=== PATIENT | male | born 1960 | race Caucasian/White ===

== ENCOUNTER 2018-09-22 09:10 | Emergency (ER) | payer MEDICAID ==
[~2018-09-22] VITALS: Ht 172.7 cm; Wt 81.6 kg
[~2018-09-22 09:10] MED LIST: AMIT25TA9; AMLO5TAB4 PO; CYCL-10 PO; ESCI10TA PO; HYDR-4274 PO; INSU300I SQ; OMEP20CA10 PO
[2018-09-22 09:20] VITALS: BP_SYST 159
[2018-09-22] MEDS ORDERED: LACTULOSE 20 GM/30 ML UDC PO ONE (10:00)
[2018-09-22 10:17] LABS: CALCIUM 8.1 mg/dL (8.4-11.0); CREATININE 0.77 mg/dL (0.55-1.30); POTASSIUM 4.6 mmol/L (3.5-5.1)
[2018-09-22 10:22] LABS: ALBUMIN 1.7 g/dL (3.4-4.8); TOTAL BILIRUBIN 0.6 mg/dL (0.0-1.0)
[2018-09-22 10:27] LABS: HEMOGLOBIN 11.9 g/dL (14.0-18.0)
[2018-09-22 10:35] LABS: BASOPHILS # (AUTO) 0.1 K/uL (0.0-0.2); BASOPHILS % (AUTO) 0.9 % (0.0-2.0); EOSINOPHILS # (AUTO) 0.1 K/uL (0.0-0.4); EOSINOPHILS % (AUTO) 2.1 % (0.0-4.0); HEMATOCRIT 35.3 % (36-54); LYMPHOCYTES # (AUTO) 0.8 K/uL (1.0-5.5); LYMPHOCYTES % (AUTO) 14.3 % (20.5-51.5); MEAN CORPUSCULAR HEMOGLOBIN 31 pg (27-31); MEAN CORPUSCULAR HGB CONC 34 % (32-36); MEAN CORPUSCULAR VOLUME 91 fL (79.0-98.0); MONOCYTES # (AUTO) 0.5 K/uL (0.0-1.0); MONOCYTES % (AUTO) 8.5 % (1.7-9.3); NEUTROPHILS # (AUTO) 4.4 K/uL (1.8-7.7); NEUTROPHILS % (AUTO) 74.2 % (40.0-70.0); PLATELET COUNT (AUTO) 192 K/uL (130-430); RED BLOOD CELL COUNT(AUTO) 3.88 MIL/uL (4.2-6.2); RED CELL DISTRIBUTION WIDTH 14.8 % (9.0-15.0); WHITE BLOOD COUNT (AUTO) 5.9 K/uL (4.8-10.8)
[2018-09-22] MEDS ORDERED: MORPHINE 4 MG/ML INJ. SYRINGE IM ONE (11:00)
[2018-09-22 11:09] VITALS: BP_SYST 144
== END 2018-09-22 10:15 | disposition home or self-care (01) ==
LOC: SED 09:10
DX: K59.00 Constipation, unspecified (principal); K43.9 Ventral hernia without obstruction or gangrene; E11.9 Type 2 diabetes mellitus without complications; I10 Essential (primary) hypertension; Z79.899 Other long term (current) drug therapy
CPT/HCPCS: 36415; 80053; 82140; 83690; 85025; 96372; 99283; J2270

== ENCOUNTER 2018-10-06 10:11 | Emergency (ER) | payer MEDICAID ==
[~2018-10-06] VITALS: Ht 172.7 cm; Wt 68.0 kg
[2018-10-06 10:16] VITALS: BP_SYST 145
--- NOTE | 2018-10-06 10:23 | NUR ---
Patient to ER bed 5 to gown for evaluation. Side rails up. Report given to Gayla LUNA.
--- NOTE | 2018-10-06 10:24 | NUR ---
ER Dr. WHITMORE at bedside examining patient.
--- NOTE | 2018-10-06 10:25 | NUR ---
PATIENT CAME IN COMPLAINING OF PAIN 8/10 TO RIGHT SIDE OF ABD RADIATING TO GROIN. PATIENT HAS HISTORY OF COLON CANCER THAT METASTISIZED TO LIVER. PATIENT TAKING NORCO FOR PAIN BUT IS NOT WORKING. PATIENT NOT ON CHEMO OR RADIATION AT THE MOMENT. PATIENT SUPPOSE TO HAVE SURGERY BUT WAITING FOR INSURANCE AND SURGONS APPROVAL. PATIENT DENIES SOB, NAUSEA, AND VOMITING. PATIENT IS ALERT AND ORIENTED X4. AT BEDSIDE.
[2018-10-06] MEDS ORDERED: NACL 0.9% 1,000 ML IV ONE (10:34)
[2018-10-06] MEDS ORDERED: MORPHINE SULFATE 10 MG/ML VIAL IVP ONE (10:45)
[2018-10-06] MEDS ORDERED: ONDANSETRON HCL 4 MG/2 ML VIAL IVP ONE (10:45)
[2018-10-06 10:57] LABS: BASOPHILS # (AUTO) 0.1 K/uL (0.0-0.2); BASOPHILS % (AUTO) 0.9 % (0.0-2.0); EOSINOPHILS # (AUTO) 0.1 K/uL (0.0-0.4); EOSINOPHILS % (AUTO) 1.4 % (0.0-4.0); HEMATOCRIT 34.7 % (36-54); HEMOGLOBIN 11.7 g/dL (14.0-18.0); LYMPHOCYTES # (AUTO) 1.1 K/uL (1.0-5.5); LYMPHOCYTES % (AUTO) 17.8 % (20.5-51.5); MEAN CORPUSCULAR HEMOGLOBIN 31 pg (27-31); MEAN CORPUSCULAR HGB CONC 34 % (32-36); MEAN CORPUSCULAR VOLUME 91 fL (79.0-98.0); MONOCYTES # (AUTO) 0.7 K/uL (0.0-1.0); MONOCYTES % (AUTO) 10.4 % (1.7-9.3); NEUTROPHILS # (AUTO) 4.4 K/uL (1.8-7.7); NEUTROPHILS % (AUTO) 69.5 % (40.0-70.0); PLATELET COUNT (AUTO) 246 K/uL (130-430); RED BLOOD CELL COUNT(AUTO) 3.81 MIL/uL (4.2-6.2); RED CELL DISTRIBUTION WIDTH 14.6 % (9.0-15.0); WHITE BLOOD COUNT (AUTO) 6.3 K/uL (4.8-10.8)
[2018-10-06 10:57] LABS: BILIRUBIN,URINE 1+ (NEGATIVE); BLOOD, URINE 2+ (NEGATIVE); CLARITY/URINE HAZY (CLEAR); COLOR,URINE AMBER (YELLOW); GLUCOSE,URINE TRACE (NEGATIVE); KETONES,URINE NEGATIVE (NEGATIVE); LEUKOCYTE ESTERASE ,URINE NEGATIVE (NEGATIVE); NITRITE, URINE NEGATIVE (NEGATIVE); PH,URINE 6.5 (5.0-8.0); PROTEIN URINE 3+ (NEGATIVE)
[2018-10-06 11:05] LABS: BACTERIA,URINE FEW /HPF (None Seen); MUCUS,URINE 1+ /LPF (None Seen); RBC,URINE 0-3 /HPF (0-3); WBC,URINE 0-3 /HPF (0-3)
--- NOTE | 2018-10-06 11:05 | NUR ---
GAVE PATIENT PAIN MEDICATION. PATIENT TOLERATED WELL. PATIENT STATED SOME RELIEF.
--- NOTE | 2018-10-06 11:07 | NUR ---
PATIENT LEFT TO CT VIA GURNEY IN STABLE CONDITION.
[2018-10-06 11:10] LABS: ALBUMIN 1.7 g/dL (3.4-4.8); CALCIUM 7.8 mg/dL (8.4-11.0); CREATININE 0.75 mg/dL (0.55-1.30); TOTAL BILIRUBIN 0.5 mg/dL (0.0-1.0)
--- NOTE | 2018-10-06 11:19 | NUR ---
PATIENT BACK FROM CT IN STABLE CONDITION.
--- NOTE | 2018-10-06 12:52 | NUR ---
Patient given written and verbal discharge instructions and verbalizes understanding. ER MD discussed with patient the results and treatment provided. Patient in stable condition. ID arm band removed. IV catheter removed intact and dressing applied, no active bleeding. NO Rx given. Patient educated on pain management and to follow up with PMD. Pain Scale 2/10 TOLERABLE. Opportunity for questions provided and answered. Medication side effect fact sheet provided.
[2018-10-06 12:54] VITALS: BP_SYST 130
== END 2018-10-06 12:54 | disposition home or self-care (01) ==
LOC: SED 10:11
DX: R10.11 Right upper quadrant pain (principal); K46.9 Unspecified abdominal hernia without obstruction or gangrene; C18.9 Malignant neoplasm of colon, unspecified; I10 Essential (primary) hypertension; E11.9 Type 2 diabetes mellitus without complications; Z79.899 Other long term (current) drug therapy
CPT/HCPCS: 36415; 74176; 80053; 81000; 83690; 85025; 96374; 96375; 99284; J2270; J2405; J7030

== ENCOUNTER 2018-10-28 03:52 | Inpatient (IN) | payer MEDICAID ==
[~2018-10-28] VITALS: Ht 172.7 cm; Wt 83.1 kg
[2018-10-28 03:55] VITALS: BP_SYST 133
--- NOTE | 2018-10-28 03:58 | NUR ---
Patient to ER bed 8 to gown for evaluation. Side rails up. Report given to Vanita LUNA.
--- NOTE | 2018-10-28 04:15 | NUR ---
Pt came to the ED for ABD pain radiating to back and groin. Pain is 10/10. Denies SOB and chest pain. Denies n/v/d or fever. No other complaints/injuries noted. Will cont. to monitor.
[2018-10-28] MEDS ORDERED: NACL 0.9% 1,000 ML IV ONE (04:29)
[2018-10-28] MEDS ORDERED: DIPHENHYDRAMINE INJ 50 MG/ML VIAL IVP ONE (04:30)
[2018-10-28] MEDS ORDERED: MORPHINE 4 MG/ML INJ. SYRINGE IVP ONE (04:30)
--- NOTE | 2018-10-28 04:32 | NUR ---
ER at bedside examining patient.
--- NOTE | 2018-10-28 04:35 | NUR ---
Marixa gould in ED - 10/28/18 at 0525 by [email or web address] GILBERTO Perez at bedside examining patient.
--- NOTE | 2018-10-28 05:08 | NUR ---
Pt appears to be sleeping prior to administration of medication. Pt woke up and states, "I am in so much pain."
[2018-10-28] MEDS ORDERED: IOHEXOL 100 ML IV ONE (05:09)
--- NOTE | 2018-10-28 05:24 | NUR ---
Pt went to CT SCAN via [employer]. Tolerated well. Will cont. to monitor
[2018-10-28 05:36] LABS: BASOPHILS % (AUTO) 0.6 % (0.0-2.0); EOSINOPHILS % (AUTO) 0.3 % (0.0-4.0); HEMATOCRIT 32.7 % (36-54); LYMPHOCYTES # (AUTO) 1.1 K/uL (1.0-5.5); LYMPHOCYTES % (AUTO) 13.8 % (20.5-51.5); MEAN CORPUSCULAR HEMOGLOBIN 31 pg (27-31); MEAN CORPUSCULAR HGB CONC 34 % (32-36); MEAN CORPUSCULAR VOLUME 91 fL (79.0-98.0); MONOCYTES # (AUTO) 0.9 K/uL (0.0-1.0); MONOCYTES % (AUTO) 10.8 % (1.7-9.3); NEUTROPHILS % (AUTO) 74.5 % (40.0-70.0); PLATELET COUNT (AUTO) 280 K/uL (130-430); RED BLOOD CELL COUNT(AUTO) 3.58 MIL/uL (4.2-6.2); RED CELL DISTRIBUTION WIDTH 14.8 % (9.0-15.0)
[2018-10-28 05:42] LABS: CALCIUM 7.6 mg/dL (8.4-11.0); CREATININE 1.07 mg/dL (0.55-1.30); POTASSIUM 4.1 mmol/L (3.5-5.1)
--- NOTE | 2018-10-28 05:46 | NUR ---
Pt returned from CT scan via [employer]. Tolerated well. Will cont. to monitor.
[2018-10-28 05:48] LABS: ALBUMIN 1.7 g/dL (3.4-4.8); TOTAL BILIRUBIN 0.5 mg/dL (0.0-1.0)
--- NOTE | 2018-10-28 07:05 | NUR ---
Medication reconciliation completed with information provided by patient. Any prior medication reconciliation on file was reviewed and corrected.
--- NOTE | 2018-10-28 07:35 | NUR ---
Patient will be admitted to care of Dr. Carlos. Admitted to medsurg unit. Will go to room 116B. Belongings list completed. Summary report printed. Report will be given at bedside.
--- NOTE | 2018-10-28 07:45 | NUR ---
Patient transferred via joaquin and RN with patent and intact IV to right AC. Bedside report given to JEREMY Delacruz for continuation of care.
--- NOTE | 2018-10-28 07:45 | NUR ---
Admission: Received from ER on a gurney with the diagnosis of Colon Cancer, Ascitis. Oriented x4, ambulatory, uses cane. Oriented to room, call light within reach.
--- NOTE | 2018-10-28 08:14 | NUR ---
GI consult called: for Dr. Rose, regarding ascites/colon cancer, ordered by Dr. Carlos, spoke with Amy.
[2018-10-28 08:25] VITALS: BP_SYST 154
[2018-10-28 08:43] LABS: BILIRUBIN,URINE 1+ (NEGATIVE); CLARITY/URINE CLEAR (CLEAR); COLOR,URINE YELLOW (YELLOW); GLUCOSE,URINE TRACE (NEGATIVE); KETONES,URINE NEGATIVE (NEGATIVE); LEUKOCYTE ESTERASE ,URINE NEGATIVE (NEGATIVE); NITRITE, URINE NEGATIVE (NEGATIVE); PH,URINE 6.5 (5.0-8.0); PROTEIN URINE 3+ (NEGATIVE)
[2018-10-28 08:46] LABS: BLOOD, URINE TRACE (NEGATIVE); UROBILINOGEN,URINE >=8 (0.2-1.0)
[2018-10-28 08:53] LABS: BACTERIA,URINE FEW /HPF (None Seen); FINE GRANULAR CASTS,URINE 0-10 /LPF (None Seen); HYALINE CASTS, URINE 0-10 /LPF (None Seen); RBC,URINE 0-3 /HPF (0-3); WBC,URINE 0-3 /HPF (0-3)
--- NOTE | 2018-10-28 09:00 | NUR ---
ASSUMPTION OF CARE: RECEIVED PT FROM ER VIA Justyna LEI/MYLES, DX: RISK FOR FLUID EXCESS, R/T ASCITES, COLON CA, BREATH SOUNDS ARE CLEAR, BREATHING LABORED ON EXERTION, SATURATING 97% ORA, VSS, C/O MODERATE PAIN TO ABD 6/10 VIA NUMERIC SCALE, M.D. CALLED, MESSAGE LEFT, IV SITE INTACT, PATENT, NO REDNESS OR SWELLING, NO OPEN WOUNDS NOTED, ABDOMEN DISTENDED AND FIRM, ORIENTED TO UNIT, CALL LIGHT PLACED WITHIN REACH, WILL CON'T TO MONITOR AND ASSESS.
--- NOTE | 2018-10-28 09:45 | NUR ---
VISIT: AT BEDSIDE FOR ASSESSMENT OF PT, DISCUSSED POC, PT VERBALIZES UNDERSTANDING, NO NEW ORDERS GIVEN AT THIS TIME, WILL CON'T TO MONITOR AND ASSESS.
[2018-10-28] MEDS ORDERED: ONDANSETRON HCL 4 MG/2 ML VIAL IVP PRN (10:30)
[2018-10-28] MEDS ORDERED: ACETAMINOPHEN 325 MG TABLET PO PRN (10:30)
[2018-10-28] MEDS ORDERED: DEXTROSE 50% JECT 50 ML DISP.SYRIN IVP PRN (10:30)
[2018-10-28] MEDS ORDERED: METOCLOPRAMIDE HCL 10 MG/2 ML VIAL IVP PRN (10:30)
[2018-10-28] MEDS ORDERED: MORPHINE 2 MG/ML INJ. SYRINGE IVP PRN (10:30)
--- NOTE | 2018-10-28 10:30 | NUR ---
VISIT: AT BEDSIDE FOR ASSESSMENT OF PT, DISCUSSED POC, PT VERBALIZES UNDERSTANDING, NEW ORDERS GIVEN, WILL CON'T WITH PLAN OF CARE.
[2018-10-28] MEDS ORDERED: CITALOPRAM HYDROBROMIDE 20 MG TABLET PO ONE (10:45)
[2018-10-28] MEDS ORDERED: PANTOPRAZOLE SODIUM 40 MG TAB PO ONE (10:45)
--- NOTE | 2018-10-28 10:55 | NUR ---
PAIN: PT C/O PAIN TO ABD 9/10 VIA NUMERIC SCALE, MED GIVEN MORPHINE 4MG IVP WITH 4MG ZOFRAN FOR NAUSEA, TOLERATED WELL, CALL LIGHT PLACED WITHIN REACH, WILL CON'T TO MONITOR AND ASSESS.
[2018-10-28] MEDS: MORPHINE 4 MG/ML INJ. SYRINGE IVP PRN ×3 (10:56→21:03)
--- NOTE | 2018-10-28 11:15 | NUR ---
GLUCOSE MONITORING: BLOOD SUGAR AGOIL=077, NO COVERAGE REQUIRED, TOLERATED WELL, WILL CON'T WITH POC.
[2018-10-28 11:36] VITALS: BP_SYST 119
[2018-10-28 15:25] VITALS: BP_SYST 134
--- NOTE | 2018-10-28 15:30 | NUR ---
NURSES NOTES: PT ASLEEP WHILE IN POSITION OF COMFORT, NO INDICATION OF PAIN OR DISCOMFORT, NO S/S OF DISTRESS, BREATHING EASY, CALL LIGHT PLACED WITHIN REACH, WILL CON'T TO MONITOR AND ASSESS.
--- NOTE | 2018-10-28 17:15 | NUR ---
PAIN: PT C/O PAIN TO ABD 9/10 VIA NUMERIC SCALE, MED GIVEN MORPHINE 4MG IVP, TOLERATED WELL, CALL LIGHT PLACED WITHIN REACH, WILL CON'T TO MONITOR AND ASSESS.
--- NOTE | 2018-10-28 18:00 | NUR ---
END OF SHIFT: PT REMAINS STABLE, NO C/O PAIN, NO SIGNIFICANT CHANGES NOTED AT THIS TIME, NEEDS MET, CALL LIGHT WITH REACH, WILL ENDORSE TO RETAIL ACCOUNT MANAGER NURSE.
--- NOTE | 2018-10-28 19:35 | NUR ---
INITIAL NOTE RECEIVED PATIENT ASLEEP BUT EASILY AROUSABLE. AWAKE, ALERT AND ORIENTED. NO SOB NOTED. DENIES ANY N/V OR SOB AT THIS TIME. COMPLAIN OF MILD ABDOMINAL PAIN. SALINE LOCK FLUSHED. SKIN INTACT AND NO PERIPHERAL EDEMA. AMBULATES WITH STEADY GAIT. DRY BLISTER NOTED ON RIGHT DISTAL FOOT. WILL COVER WITH FOAM DRESSING. ABDOMEN DISTENDED AND HERNIA NOTED ON RUQ. CARE AND MONITORING WILL BE PROVIDED PER PROTOCOL. CALL LIGHT WITHIN REACH. BED ALARM OFF PER PATIENT'S REQUEST. BED AT LOWEST POSITION AT ALL TIMES. NEEDS ATTENDED. KEPT WARM AND COMFORTABLE.
[2018-10-28 20:00] VITALS: BP_SYST 138
--- NOTE | 2018-10-28 21:00 | NUR ---
PAIN MED COMPLAIN OF SEVERE ABDOMINAL PAIN, MEDICATED FOR PAIN. COMFORT MEASURES PROVIDED. LATEST BLOOD SUGAR WAS 99, NO COVERAGE GIVEN. TOOK PHOTO OF THE DRY BLISTER AND COVERED WITH FOAM DRESSING. ADVISED TO CALL IF HE FEELS WEAK OR DIZZY. NEEDS ATTENDED.
--- NOTE | 2018-10-28 23:00 | NUR ---
RN NOTE PATIENT SLEEPING AT THIS TIME. NO SOB OR GRIMACING NOTED.
[2018-10-29 00:10] VITALS: BP_SYST 134
--- NOTE | 2018-10-29 01:00 | NUR ---
RN NOTE ASLEEP, MOVES OCCASIONALLY. NO DISTRESS NOTED.
[2018-10-29] MEDS: MORPHINE 4 MG/ML INJ. SYRINGE IVP PRN ×5 (02:57→23:42)
--- NOTE | 2018-10-29 03:00 | NUR ---
PAIN MED PATIENT AWAKE WITH FAMILY AT THE BEDSIDE. COMPLAIN OF ABDOMINAL PAIN. MEDICATED FOR PAIN REQUESTED. COMFORT MEASURES PROVIDED. KEPT WARM AND COMFORTABLE.
--- NOTE | 2018-10-29 03:00 | NUR ---
PAIN MED PATIENT AWAKE. COMPLAIN OF ABDOMINAL PAIN AND MILD NAUSEA. NO VOMITING. MEDICATED FOR PAIN REQUESTED. PAGED DR. LIU 4X BUT NO CALL BACK. PATIENT AWARE. COMFORT MEASURES PROVIDED. KEPT WARM AND COMFORTABLE. Addendum: 10/29/18 at 0302 by Marito De La Cruz RN WRONG PATIENT
--- NOTE | 2018-10-29 05:38 | NUR ---
ACCU CHECK TO AC/HS DR. LIU CALLED BACK AND REQUESTED TO HAVE PATIENT'S ACCU CHECK SCHEDULE CHANGE TO AC/HS. ORDER WAS MADE AND CARRIED OUT.
--- NOTE | 2018-10-29 06:26 | NUR ---
END NOTE AFEBRILE. VS STABLE. NO COMPLAIN OF SOB OR N/V THROUGHOUT THE NIGHT. MEDICATED FOR ABDOMINAL PAIN TWICE ALL NIGHT. ABLE TO SLEEP FOR HOURS. SALINE LOCK. NO LABS TODAY. LATEST BLOOD SUGAR WAS 107, NO COVERAGE GIVEN. DRESSING ON RIGHT DISTAL FOOT CDI. CARE AND MONITORING PROVIDED PER PROTOCOL. CALL LIGHT WITHIN REACH. BED ALARM OFF PER PATIENT'S REQUEST. BED AT LOWEST POSITION AT ALL TIMES. NEEDS ATTENDED. KEPT WARM AND COMFORTABLE.
[2018-10-29 08:00] VITALS: BP_SYST 126; BP_SYST 156
[2018-10-29] MEDS: CITALOPRAM HYDROBROMIDE 20 MG TABLET PO SCH (08:28)
[2018-10-29] MEDS: PANTOPRAZOLE SODIUM 40 MG TAB PO SCH (08:28)
--- NOTE | 2018-10-29 09:00 | NUR ---
JIG MILL OPERATOR: MORNING MEDS GIVEN, PER ORDERED BY Rita, TOLERATED WELL, WILL CON'T WITH POC.
--- NOTE | 2018-10-29 09:00 | NUR ---
GLUCOSE MONITORING: BLOOD SUGAR LEVEL=97, NO COVERAGE REQUIRED, TOLERATED WELL, WILL CON'T WITH POC.
--- NOTE | 2018-10-29 09:38 | NUR ---
Nutrition Update Nick Scale 18 noted. Pt admitted for colon CA, ascites. Diet: clear liquid BMI: 27.9 kg/m2 RD to follow per nutrition care standards.
[2018-10-29 11:29] VITALS: BP_SYST 128
--- NOTE | 2018-10-29 11:30 | NUR ---
GLUCOSE MONITORING: BLOOD SUGAR LEVEL=98, NO COVERAGE REQUIRED, TOLERATED WELL, WILL CON'T WITH POC.
--- NOTE | 2018-10-29 13:00 | NUR ---
US PARACENTESIS: PT UNDERGOING PROCEDURE AT BEDSIDE, US GUIDED PARACENTESIS BY , 5L REMOVED FROM RIGHT SIDE ABDOMEN, TOLERATED WELL, FLUID IS LABELLED AND SENT TO LAB FOR PATHOLOGY, WILL CON'T WITH POC.
[2018-10-29 16:07] VITALS: BP_SYST 136
--- NOTE | 2018-10-29 17:00 | NUR ---
GLUCOSE MONITORING: BLOOD SUGAR LEVEL=97, NO COVERAGE REQUIRED, TOLERATED WELL, WILL CON'T WITH POC.
--- NOTE | 2018-10-29 18:00 | NUR ---
END OF SHIFT: PT RESTING IN POSITION OF COMFORT, NO S/S OF DISTRESS, NO C/O PAIN AT THIS TIME, NEEDS MET, CALL LIGHT PLACED WITHIN REACH, WILL CON'T TO MONITOR, ENDORSE TO NIGHT SHHIFT NURSE.
--- NOTE | 2018-10-29 19:30 | NUR ---
OPENING NOTES Pt and endorsement received from day shift nurse. Pt is AAOx4, lying in bed. Pt on saline lock on right AC G18. No complains of pain or discomfort at this time. No signs of acute distress or SOB noted. Encouraged to use call light when needed. Safety precautions in place with 2 side rails up, wheels locked and bed in lowest level. Call light with pt. Will continue to monitor.
[2018-10-29 19:48] LABS: BF APPEARANCE UNSPUN CLOUDY (CLEAR); BODY FLUID SOURCE/ TYPE ASCITES; SOURCE/TYPE ,BODY FLUID ASCITES
[2018-10-29 19:49] LABS: BODY FLUID COLOR RED (LT YELLOW); BODY FLUID TOTAL VOLUME 5200 mL
[2018-10-29 20:13] LABS: APPEARANCE,SPUN,BODY FLUID CLOUDY (CLEAR)
[2018-10-29 21:26] VITALS: BP_SYST 145
[2018-10-29] MEDS: INSULIN REGULAR, HUMAN 100 UNITS/ML, 10 ML VIAL (humuLIN R) SUBCUT PRN (21:31)
[2018-10-29 23:38] LABS: WBC, BODY FLUID 217 /uL
[2018-10-29 23:39] LABS: EOSINOPHIL, BODY FLUID 0 %; LYMPHOCYTES, BODY FLUID 23 %; MONOCYTES,BODY FLUID 32 %; NEUTROPHIL, BODY FLUID 45 %; RBC, BODY FLUID 19987 /uL
--- NOTE | 2018-10-29 23:42 | NUR ---
PAIN MED Pt complained of abdominal pain with a scale of 9/10. BP was 143/87mmHg. Morphine 4mg IVP given as ordered. Educated on safety precautions and side effects like dizziness, pt verbalized understanding. Will continue to monitor.
[2018-10-30] VITALS (8 sets, daily range): BP systolic 130–153
--- NOTE | 2018-10-30 03:08 | NUR ---
ROUNDS Pt is resting in bed with both eyes closed, with visible chest rise and fall with non-labored breathing noted. Pt is easily arousable. No complains of pain and no signs of acute distress noted. No needs at this time. Safety precautions in place and call light with pt. Will continue to monitor.
[2018-10-30] MEDS: MORPHINE 4 MG/ML INJ. SYRINGE IVP PRN (05:27)
--- NOTE | 2018-10-30 05:27 | NUR ---
PAIN MED Pt complained of abdominal pain with a scale of 8/10. Vital signs taken and recorded. Morphine 4mg IVP given as ordered. Reeducated on safety precautions and side effects like dizziness, pt verbalized understanding. No signs of acute distress noted. Safety precautions in place and call light with pt. Will continue to monitor.
[2018-10-30] MEDS: INSULIN REGULAR, HUMAN 100 UNITS/ML, 10 ML VIAL (humuLIN R) SUBCUT PRN (06:00)
--- NOTE | 2018-10-30 06:00 | NUR ---
FS BLOOD GLUCOSE FS blood glucose is 96mg/dl. No insulin given per protocol. Will continue to monitor.
--- NOTE | 2018-10-30 06:37 | NUR ---
CLOSING NOTES Pt is resting in bed with both eyes closed, with visible chest rise and fall with non-labored breathing noted. Pt is easily arousable. No complains of pain or discomfort at this time. No signs of acute distress or SOB noted. All needs attended throughout the shift. Safety precautions maintained with 2 side rails up, wheels locked, and bed in lowest level. Call light with pt. Will endorse to day shift nurse.
[2018-10-30 07:08] LABS: BODY FLUID GLUCOSE 117 mg/dL; BODY FLUID TOTAL PROTEIN 1.5 g/dL
--- NOTE | 2018-10-30 07:39 | NUR ---
RN INTIAL NOTES RECEIVED PATIENT IN BED AWAKE AND VERBAL NO DISTRESS AND ABLE TO ANSWER QUESTION HAD S/P PARACENTECIS YESTERDAY AND NO DISTRESS NOTED NO ABDOMINAL PAIN AT THIS TIME RESP EVEN AND UNLABORED SAFETY ENSURED
[2018-10-30] MEDS: CITALOPRAM HYDROBROMIDE 20 MG TABLET PO SCH (09:43)
[2018-10-30] MEDS: PANTOPRAZOLE SODIUM 40 MG TAB PO SCH (09:43)
--- NOTE | 2018-10-30 10:00 | NUR ---
PAIN PATIENT GIVEN MORPHINE AND WILL MONITOR , SAFETY ENSURED KEEP SELF RESTED IN BED
--- NOTE | 2018-10-30 12:40 | NUR ---
[facility] SOFT DIET PATIENT WANTED TO EAT AND DR BRITANY FRAIRE FOR [facility] SOFT DIET AND MONITOR TOLERANCE
--- NOTE | 2018-10-30 13:44 | NUR ---
PAGED PAGED HARRY MCKAY AT [phone] SPOKE WITH SAVANNAH.
--- NOTE | 2018-10-30 16:00 | NUR ---
DC ORDER DR LIU CAME AND SPOKE WITH THE PATIENT WITH DC ORDER
--- NOTE | 2018-10-30 17:45 | NUR ---
D/C Patient Patient given medication reconciliation form and D/C instructions. Exit Care provided. Patient verbalized understanding patient made appt with pcp on nov 19. MD discussed with patient the results and treatment provided. Ambulatory with steady gait for discharge to home. Patient in stable condition, ID band removed. IV catheter removed, intact and dressing applied, no active bleeding. Rx of given. Patient educated on pain management. All belongings sent with patient.
== END 2018-10-30 17:45 | disposition home or self-care (01) ==
LOC: SED 03:52 → SMU 07:31
PROVIDERS: ADMIT Internal Medicine Hospice and Palliative Medicine; ATTEND Internal Medicine Hospice and Palliative Medicine
PROC: 0W9G3ZZ Drainage of Peritoneal Cavity, Percutaneous Approach (ICD-10-PCS; principal; 2018-10-29)
DX: K74.60 Unspecified cirrhosis of liver (principal); R18.8 Other ascites; C78.7 Secondary malignant neoplasm of liver and intrahepatic bile duct; K76.6 Portal hypertension; C18.9 Malignant neoplasm of colon, unspecified; D64.9 Anemia, unspecified; E11.9 Type 2 diabetes mellitus without complications; I10 Essential (primary) hypertension; K43.9 Ventral hernia without obstruction or gangrene; F32.9 Major depressive disorder, single episode, unspecified; K57.90 Diverticulosis of intestine, part unspecified, without perforation or abscess without bleeding; K80.20 Calculus of gallbladder without cholecystitis without obstruction; Z85.038 Personal history of other malignant neoplasm of large intestine; Z87.891 Personal history of nicotine dependence; Z90.49 Acquired absence of other specified parts of digestive tract; Z79.899 Other long term (current) drug therapy
CPT/HCPCS: 36415; 49083; 80053; 81000-TC; 82042; 82140-TC; 82947-TC; 82962; 83605; 83690-TC; 84157-TC; 85025; 85610-TC; 85730-TC; 87040-TC; 88108; 88305; 89051-TC; 89060-TC; 96361; 96374; 96375; 99285; C1729; J1200; J2270; J2405; Q9967

== ENCOUNTER 2018-11-01 21:07 | Inpatient (IN) | payer MEDICAID ==
[~2018-11-01] VITALS: Ht 172.7 cm; Wt 74.4 kg
[2018-11-01 21:15] VITALS: BP_SYST 121
[2018-11-01 22:43] LABS: BASOPHILS # (AUTO) 0.1 K/uL (0.0-0.2); BASOPHILS % (AUTO) 1.1 % (0.0-2.0); EOSINOPHILS % (AUTO) 0.3 % (0.0-4.0); HEMATOCRIT 36.8 % (36-54); HEMOGLOBIN 12.4 g/dL (14.0-18.0); LYMPHOCYTES % (AUTO) 11.3 % (20.5-51.5); MEAN CORPUSCULAR HEMOGLOBIN 31 pg (27-31); MEAN CORPUSCULAR HGB CONC 34 % (32-36); MEAN CORPUSCULAR VOLUME 91 fL (79.0-98.0); MONOCYTES # (AUTO) 0.7 K/uL (0.0-1.0); MONOCYTES % (AUTO) 8.5 % (1.7-9.3); NEUTROPHILS # (AUTO) 6.9 K/uL (1.8-7.7); NEUTROPHILS % (AUTO) 78.8 % (40.0-70.0); PLATELET COUNT (AUTO) 334 K/uL (130-430); RED BLOOD CELL COUNT(AUTO) 4.05 MIL/uL (4.2-6.2); RED CELL DISTRIBUTION WIDTH 14.1 % (9.0-15.0); WHITE BLOOD COUNT (AUTO) 8.7 K/uL (4.8-10.8)
[2018-11-01 23:05] LABS: ALBUMIN 1.7 g/dL (3.4-4.8); CALCIUM 7.9 mg/dL (8.4-11.0); CREATININE 1.29 mg/dL (0.55-1.30); POTASSIUM 4.6 mmol/L (3.5-5.1); TOTAL BILIRUBIN 0.3 mg/dL (0.0-1.0)
[2018-11-02 00:43] LABS: BILIRUBIN,URINE 1+ (NEGATIVE); BLOOD, URINE NEGATIVE (NEGATIVE); CLARITY/URINE CLEAR (CLEAR); COLOR,URINE YELLOW (YELLOW); GLUCOSE,URINE NEGATIVE (NEGATIVE); KETONES,URINE TRACE (NEGATIVE); LEUKOCYTE ESTERASE ,URINE NEGATIVE (NEGATIVE); NITRITE, URINE NEGATIVE (NEGATIVE); PH,URINE 5.5 (5.0-8.0); PROTEIN URINE 3+ (NEGATIVE)
[2018-11-02 00:54] LABS: BACTERIA,URINE FEW /HPF (None Seen); RBC,URINE 0-3 /HPF (0-3)
[2018-11-02] MEDS ORDERED: ONDANSETRON HCL 4 MG/2 ML VIAL IVP ONE (01:00)
[2018-11-02] MEDS ORDERED: KETAMINE 30 MG/3 ML SYRINGE IVP ONE (01:00)
[2018-11-02] MEDS ORDERED: IOHEXOL 100 ML IV ONE (01:21)
[2018-11-02 06:23] VITALS: BP_SYST 162
[2018-11-02] MEDS: HYDROmorphone 1 MG INJ. 1 MG/ML AMPUL IVP PRN ×5 (06:38→21:02)
[2018-11-02] MEDS ORDERED: ONDANSETRON HCL 4 MG/2 ML VIAL IVP PRN (08:00)
[2018-11-02 09:17] LABS: BASOPHILS % (AUTO) 0.5 % (0.0-2.0); EOSINOPHILS % (AUTO) 0.3 % (0.0-4.0); HEMATOCRIT 35.8 % (36-54); HEMOGLOBIN 11.9 g/dL (14.0-18.0); LYMPHOCYTES # (AUTO) 0.8 K/uL (1.0-5.5); LYMPHOCYTES % (AUTO) 11.5 % (20.5-51.5); MEAN CORPUSCULAR HEMOGLOBIN 30 pg (27-31); MEAN CORPUSCULAR HGB CONC 33 % (32-36); MEAN CORPUSCULAR VOLUME 91 fL (79.0-98.0); MONOCYTES # (AUTO) 0.5 K/uL (0.0-1.0); MONOCYTES % (AUTO) 7.4 % (1.7-9.3); NEUTROPHILS # (AUTO) 5.6 K/uL (1.8-7.7); NEUTROPHILS % (AUTO) 80.3 % (40.0-70.0); PLATELET COUNT (AUTO) 278 K/uL (130-430); RED BLOOD CELL COUNT(AUTO) 3.94 MIL/uL (4.2-6.2); RED CELL DISTRIBUTION WIDTH 14.1 % (9.0-15.0)
[2018-11-02 09:26] LABS: PROTHROMBIN TIME 10.4 SECS (9.5-12.5)
[2018-11-02 09:45] LABS: ALBUMIN 1.7 g/dL (3.4-4.8); CALCIUM 7.8 mg/dL (8.4-11.0); CREATININE 1.06 mg/dL (0.55-1.30); PHOSPHORUS 3.3 mg/dL (2.7-4.5); POTASSIUM 4.4 mmol/L (3.5-5.1); THYROID STIMULATING HORMONE 19.38 uIu/mL (0.36-3.74); TOTAL BILIRUBIN 0.4 mg/dL (0.0-1.0)
[2018-11-02] MEDS: DOCUSATE SODIUM 100 MG CAPSULE PO SCH ×2 (10:57→21:02)
[2018-11-02 12:00] VITALS: BP_SYST 128
[2018-11-02 16:12] VITALS: BP_SYST 131
[2018-11-02 19:00] VITALS: BP_SYST 152
[2018-11-02 20:00] VITALS: BP_SYST 152
[2018-11-02] MEDS ORDERED: GLUCOSE 15 GM GEL (in 37.5 GM TUBE) PO PRN (21:45)
[2018-11-02] MEDS ORDERED: DEXTROSE 50% JECT 50 ML DISP.SYRIN IVP PRN (21:45)
[2018-11-02] MEDS: amLODIPine BESYLATE 5 MG TABLET PO SCH (22:32)
[2018-11-03] VITALS: BP_SYST 134
[2018-11-03] MEDS: MORPHINE 2 MG/ML INJ. SYRINGE IVP PRN ×3 (00:31→08:27)
[2018-11-03] MEDS: LEVOTHYROXINE SODIUM 0.025 MG TABLET PO SCH (06:39)
[2018-11-03 07:03] LABS: CALCIUM 7.9 mg/dL (8.4-11.0); CREATININE 0.85 mg/dL (0.55-1.30); POTASSIUM 3.9 mmol/L (3.5-5.1)
[2018-11-03 07:06] LABS: BASOPHILS % (AUTO) 0.4 % (0.0-2.0); EOSINOPHILS # (AUTO) 0.1 K/uL (0.0-0.4); EOSINOPHILS % (AUTO) 1.3 % (0.0-4.0); HEMATOCRIT 31.9 % (36-54); HEMOGLOBIN 10.8 g/dL (14.0-18.0); LYMPHOCYTES # (AUTO) 0.7 K/uL (1.0-5.5); LYMPHOCYTES % (AUTO) 10.6 % (20.5-51.5); MEAN CORPUSCULAR HEMOGLOBIN 31 pg (27-31); MEAN CORPUSCULAR HGB CONC 34 % (32-36); MEAN CORPUSCULAR VOLUME 91 fL (79.0-98.0); MONOCYTES # (AUTO) 0.6 K/uL (0.0-1.0); MONOCYTES % (AUTO) 9.2 % (1.7-9.3); NEUTROPHILS # (AUTO) 5.1 K/uL (1.8-7.7); NEUTROPHILS % (AUTO) 78.5 % (40.0-70.0); PLATELET COUNT (AUTO) 261 K/uL (130-430); RED BLOOD CELL COUNT(AUTO) 3.52 MIL/uL (4.2-6.2); RED CELL DISTRIBUTION WIDTH 13.9 % (9.0-15.0); WHITE BLOOD COUNT (AUTO) 6.4 K/uL (4.8-10.8)
[2018-11-03 08:00] VITALS: BP_SYST 149
[2018-11-03] MEDS: DOCUSATE SODIUM 100 MG CAPSULE PO SCH ×2 (08:25→21:07)
[2018-11-03] MEDS: CYCLOBENZAPRINE HCL 10 MG TABLET (FLEXERIL) PO SCH (08:25)
[2018-11-03] MEDS: CITALOPRAM HYDROBROMIDE 20 MG TABLET PO SCH (08:25)
[2018-11-03] MEDS ORDERED: MORPHINE 2 MG/ML INJ. SYRINGE IVP PRN (09:45)
[2018-11-03] MEDS: amLODIPine BESYLATE 5 MG TABLET PO SCH ×2 (09:51→21:08)
[2018-11-03] MEDS: INSULIN GLARGINE 100 UNITS/ML 10 ML VIAL SUBCUT SCH (10:05)
[2018-11-03] MEDS: MORPHINE 4 MG/ML INJ. SYRINGE IVP PRN ×3 (12:55→21:13)
[2018-11-03 13:02] VITALS: BP_SYST 140
[2018-11-03 14:49] LABS: APPEARANCE,SPUN,BODY FLUID HAZY (CLEAR); BF APPEARANCE UNSPUN CLOUDY (CLEAR); BODY FLUID COLOR RED (LT YELLOW); BODY FLUID SOURCE/ TYPE ASCITES; SOURCE/TYPE ,BODY FLUID PARACENTESIS
[2018-11-03 14:50] LABS: BODY FLUID TOTAL VOLUME 1050 mL; MONOCYTES,BODY FLUID 54 %; NEUTROPHIL, BODY FLUID 46 %; RBC, BODY FLUID 4581 /uL; WBC, BODY FLUID 46 /uL
[2018-11-03 17:20] VITALS: BP_SYST 141
[2018-11-03 19:29] LABS: BODY FLUID GLUCOSE 141 mg/dL; BODY FLUID TOTAL PROTEIN 1.4 g/dL
[2018-11-03] MEDS ORDERED: AMITRIPTYLINE HCL 25 MG TABLET (ELAVIL) PO SCH (21:00)
[2018-11-03 21:06] VITALS: BP_SYST 138
[2018-11-03] MEDS: INSULIN REGULAR, HUMAN 100 UNITS/ML, 10 ML VIAL (humuLIN R) SUBCUT PRN (21:09)
[2018-11-04 00:07] VITALS: BP_SYST 136
[2018-11-04] MEDS: MORPHINE 4 MG/ML INJ. SYRINGE IVP PRN ×3 (01:35→10:09)
[2018-11-04 05:23] VITALS: BP_SYST 134
[2018-11-04] MEDS: LEVOTHYROXINE SODIUM 0.025 MG TABLET PO SCH (06:52)
[2018-11-04] MEDS: INSULIN REGULAR, HUMAN 100 UNITS/ML, 10 ML VIAL (humuLIN R) SUBCUT PRN (06:55)
[2018-11-04 08:41] VITALS: BP_SYST 148
[2018-11-04] MEDS: CITALOPRAM HYDROBROMIDE 20 MG TABLET PO SCH (08:58)
[2018-11-04] MEDS: CYCLOBENZAPRINE HCL 10 MG TABLET (FLEXERIL) PO SCH (08:58)
[2018-11-04] MEDS: DOCUSATE SODIUM 100 MG CAPSULE PO SCH (08:58)
[2018-11-04] MEDS ORDERED: SPIR50TA5 PO (09:02)
[2018-11-04] MEDS ORDERED: MORP30TA59 PO (09:02)
[2018-11-04] MEDS: INSULIN GLARGINE 100 UNITS/ML 10 ML VIAL SUBCUT SCH (09:06)
[2018-11-04] MEDS: amLODIPine BESYLATE 5 MG TABLET PO SCH (09:08)
[2018-11-04 10:57] VITALS: BP_SYST 123
== END 2018-11-04 11:25 | disposition home or self-care (01) | DRG 240 ==
LOC: SED 21:07 → SMU 11-02 05:18
PROVIDERS: ADMIT Student in an Organized Health Care Education/Training Program; ATTEND Student in an Organized Health Care Education/Training Program
PROC: 0W9G3ZZ Drainage of Peritoneal Cavity, Percutaneous Approach (ICD-10-PCS; principal; 2018-11-03)
DX: C18.9 Malignant neoplasm of colon, unspecified (principal); E43 Unspecified severe protein-calorie malnutrition; E11.21 Type 2 diabetes mellitus with diabetic nephropathy; R18.8 Other ascites; C78.7 Secondary malignant neoplasm of liver and intrahepatic bile duct; K21.9 Gastro-esophageal reflux disease without esophagitis; F32.9 Major depressive disorder, single episode, unspecified; E03.9 Hypothyroidism, unspecified; I10 Essential (primary) hypertension; Z79.4 Long term (current) use of insulin; F17.210 Nicotine dependence, cigarettes, uncomplicated; Z68.24 Body mass index [BMI] 24.0-24.9, adult
CPT/HCPCS: 36415; 49083; 80048; 80053; 80061; 81000-TC; 82042; 82947-TC; 82962; 83036; 83690-TC; 83735-TC; 83880; 84100-TC; 84157-TC; 84443-TC; 84484; 85025; 85610-TC; 85730-TC; 87081; 87086; 88108; 89051-TC; 89060-TC; 93005; 96374; 97112-GP; 97116-GP; 97530-GP; 99285; C1729; J1170; J1815; J2270; Q9967

== ENCOUNTER 2018-11-12 19:23 | Inpatient (IN) | payer MEDICAID ==
[~2018-11-12] VITALS: Ht 172.7 cm; Wt 73.9 kg
[~2018-11-12 19:23] MED LIST changes: +MORP30TA59 PO; -OMEP20CA10 PO; +OMEP20CA11 PO; +SPIR50TA5 PO
[2018-11-12 19:37] VITALS: BP_SYST 148
--- NOTE | 2018-11-12 19:39 | NUR ---
Placed in room 03 . Placed on triage nurse, blood pressure machine and pulse oximeter. To gown for exam. Side rails up.
[2018-11-12 20:15] LABS: BASOPHILS % (AUTO) 0.5 % (0.0-2.0); EOSINOPHILS % (AUTO) 0.3 % (0.0-4.0); HEMATOCRIT 37.4 % (36-54); HEMOGLOBIN 12.4 g/dL (14.0-18.0); LYMPHOCYTES # (AUTO) 1.2 K/uL (1.0-5.5); LYMPHOCYTES % (AUTO) 13.4 % (20.5-51.5); MEAN CORPUSCULAR HEMOGLOBIN 30 pg (27-31); MEAN CORPUSCULAR HGB CONC 33 % (32-36); MEAN CORPUSCULAR VOLUME 91 fL (79.0-98.0); MONOCYTES # (AUTO) 0.7 K/uL (0.0-1.0); MONOCYTES % (AUTO) 7.6 % (1.7-9.3); NEUTROPHILS # (AUTO) 6.7 K/uL (1.8-7.7); NEUTROPHILS % (AUTO) 78.2 % (40.0-70.0); PLATELET COUNT (AUTO) 322 K/uL (130-430); RED BLOOD CELL COUNT(AUTO) 4.13 MIL/uL (4.2-6.2); RED CELL DISTRIBUTION WIDTH 14.5 % (9.0-15.0); WHITE BLOOD COUNT (AUTO) 8.6 K/uL (4.8-10.8)
[2018-11-12 20:25] LABS: CALCIUM 8.4 mg/dL (8.4-11.0); CREATININE 1.16 mg/dL (0.55-1.30); POTASSIUM 3.3 mmol/L (3.5-5.1)
[2018-11-12 20:40] LABS: ALBUMIN 1.9 g/dL (3.4-4.8); TOTAL BILIRUBIN 0.7 mg/dL (0.0-1.0)
--- NOTE | 2018-11-12 21:20 | NUR ---
Dr. Aparicio bedside for Pt eval
--- NOTE | 2018-11-12 21:25 | NUR ---
Pt BIB family to ED C/O sudden onset, constant nausea and vomiting for the past 3 days. Pt reports that he is unable to keep anything down. He also reports of a difficulty swallowing, weight loss, generalized weakness, shortness of breath, dizziness, and loss of appetite. No chest pain. He reports when he has bowel movement it is noted to be diarrhea. He states he has some chills in the ER. No fevers. He reports that he is not on chemo at the moment, but notes his last chemo treatment was in January. Pt also states having Hx of colon cancer and with current liver cancer. No other injuries and or complaints noted. VSS no s/s of acute distress. Resting on gurney rails up
[2018-11-12] MEDS ORDERED: NACL 0.9% 1,000 ML IV ONE (21:26)
[2018-11-12] MEDS ORDERED: ONDANSETRON HCL 4 MG/2 ML VIAL IVP ONE (21:30)
--- NOTE | 2018-11-12 21:39 | NUR ---
Pt taken to Radiology in stable condition
--- NOTE | 2018-11-12 21:48 | NUR ---
Pt back from Radiology well tolerated
--- NOTE | 2018-11-12 22:29 | NUR ---
VSS no s/s of acute distress. Resting on gurney rails up
--- NOTE | 2018-11-12 23:35 | NUR ---
family member bedside for emotional support
[2018-11-13 00:55] LABS: BILIRUBIN,URINE 1+ (NEGATIVE); BLOOD, URINE NEGATIVE (NEGATIVE); CLARITY/URINE CLEAR (CLEAR); COLOR,URINE YELLOW (YELLOW); GLUCOSE,URINE NEGATIVE (NEGATIVE); KETONES,URINE NEGATIVE (NEGATIVE); LEUKOCYTE ESTERASE ,URINE NEGATIVE (NEGATIVE); NITRITE, URINE NEGATIVE (NEGATIVE); PH,URINE 5.5 (5.0-8.0); PROTEIN URINE 3+ (NEGATIVE)
[2018-11-13] MEDS ORDERED: MORPHINE 4 MG/ML INJ. SYRINGE IVP ONE (01:00)
--- NOTE | 2018-11-13 01:02 | NUR ---
Medication reconciliation completed with information provided by pt. Any prior medication reconciliation on file was reviewed and corrected.
[2018-11-13 01:15] LABS: BACTERIA,URINE FEW /HPF (None Seen)
--- NOTE | 2018-11-13 01:29 | NUR ---
Patient will be admitted to care of Dr. Loja. Admitted to Med Surg unit. Will go to room 130. Belongings list completed. Summary report printed. Report will be given at bedside.
--- NOTE | 2018-11-13 01:29 | NUR ---
ADMISSION: The patient, LILIANE KING, 58 y/o, M admitted by FUENTES NIEVES MD, with the diagnosis of Ascites to room 130 A ,was given written information regarding hospital policies, unit procedures and contact persons. family at bedside .
[2018-11-13 01:30] VITALS: BP_SYST 154
--- NOTE | 2018-11-13 01:30 | NUR ---
pt.admission via er-dept.pt.presents stable status.no c/o pain,nausea.pt.had received the administration;morphine;4mg ivp x1;er-dept. iv fluids;ns x1 litre.pt.presents cane;lower extremity weakness.pt.presents admit dx;intracable nausea/vomiting w/ascites.pt.presents iv access ;location;rt.forearm;intact;patent.abdomen;firm,distended;hypoactive.diet status;regular:i have provided snacks. v/s present values w/in normal limits;b/p elevated.urinal,toiletries.provided.call light/telephone placed w/in reach of the pt. has accompanied the pt.to the room.will not stay the remainder of the night.pt.to submit to us;guided paracentesis.to procur the consent.
--- NOTE | 2018-11-13 02:00 | NUR ---
pt.assessed.pt.presents quiescent affect;calm,resting viewing tv programming. has left.pt.presents no c/o pain,nausea. no additional snacks requests osited@this hour..general status stable.respiratory status stable@room air;unlabored.pt.capable to reposition self.urinal inspected;clean.call light/telephone w/in reach of the pt.
--- NOTE | 2018-11-13 04:00 | NUR ---
pt.assessed.pt.presents quiescent affect;calm,resting viewing programming.i have inspected the urinal;clean.pt.presents no c/o pain,nausea. no requests posited@this hour.general status stable.respiratory status stable@room;air;unlabored.pt.capable to reposition self. call light/telephone w/in reach of pt.
[2018-11-13] MEDS ORDERED: ONDANSETRON HCL 4 MG/2 ML VIAL IM PRN (06:00)
[2018-11-13] MEDS ORDERED: MORPHINE 2 MG/ML INJ. SYRINGE IVP PRN (06:00)
[2018-11-13] MEDS ORDERED: INSULIN REGULAR, HUMAN 100 UNITS/ML, 10 ML VIAL (humuLIN R) SUBCUT PRN (06:15)
[2018-11-13] MEDS ORDERED: D5W 1,000 ML IV PRN (06:21)
[2018-11-13] MEDS ORDERED: ACETAMINOPHEN 325 MG TABLET PO PRN (06:30)
[2018-11-13] MEDS ORDERED: LORazepam 2 MG/ML VIAL IVP PRN (06:30)
[2018-11-13] MEDS ORDERED: ONDANSETRON HCL 4 MG/2 ML VIAL IVP PRN (06:30)
[2018-11-13] MEDS ORDERED: HYDROcodone/ACETAMIN 10-325 MG TAB PO PRN (06:30)
[2018-11-13] MEDS ORDERED: GLUCOSE 15 GM GEL (in 37.5 GM TUBE) PO PRN (06:30)
[2018-11-13] MEDS ORDERED: DEXTROSE 50% JECT 50 ML DISP.SYRIN IVP PRN (06:30)
--- NOTE | 2018-11-13 06:41 | NUR ---
CONSULTATION PAGED/CALLED Reason for Consultation: ASCITES/DYSPHAGIA Person Who was Notified: SPOKE TO MECCA FROM OFFICE. Consulting Physician: Buildings Painter Specialty: GASTROENTEROLOGY Ordering Physician:
--- NOTE | 2018-11-13 06:45 | NUR ---
pt.had requested medication;pain. paged. returned the page.i apprised of the pt's requests. order morphine;2mg iv[p q-2h4hrs'p;pain.zran;4mg ip q-6hrs'p;nausea.blood glucose assessment;ac/hs:w/insulin;regular coverage. per the sliding scale.i have administered morphine;2mg ivp to f/u re;pain medication efficacy per pain mgx protocol.i have assessed the blood glucose:value;152mg/dl.i have administered insulin;regular per the sliding scale.no request posited@this hour. general status stable.respiratory status stable.diet status changed;2gm/na+.pt.capable to reposition self.urinal w/i reach of the pt.urinal inspected;clean.call light/telephone w/in reach of the pt.
[2018-11-13 07:52] VITALS: BP_SYST 120
--- NOTE | 2018-11-13 08:00 | NUR ---
Note Pt sitting up in bed eating his breakfast. No SOB/resp distress or pain/discomfort noted at this time. IV in right forearm intact and patent. Pt has large hernia on right side of abdomen. No needs noted. Call light within reach.
--- NOTE | 2018-11-13 08:15 | NUR ---
Note Dr Goodwin at bedside assessing pt and answering questions/concerns at this time. No needs noted. Call light within reach.
[2018-11-13] MEDS: PANTOPRAZOLE SODIUM 40 MG TAB PO SCH (09:14)
[2018-11-13] MEDS: CITALOPRAM HYDROBROMIDE 20 MG TABLET PO SCH (09:15)
[2018-11-13] MEDS: MORPHINE SULFATE 30 MG TABLET.SA PO SCH ×2 (09:15→22:28)
[2018-11-13] MEDS: CYCLOBENZAPRINE HCL 10 MG TABLET (FLEXERIL) PO SCH (09:16)
[2018-11-13] MEDS: SPIRONOLACTONE 50 MG TABLET (ALDACTONE) PO SCH (09:16)
[2018-11-13] MEDS: amLODIPine BESYLATE 5 MG TABLET PO SCH ×2 (09:25→22:29)
[2018-11-13] MEDS: INSULIN GLARGINE 100 UNITS/ML 10 ML VIAL SQ SCH (09:27)
--- NOTE | 2018-11-13 10:30 | NUR ---
Note Radiology setting up for Paracentesis at bedside at this time. Paracentesis tray and 4 bottles for fluid collection kept at bedside. Pt signed consent for Paracentesis-in the chart. Pt resting in bed at this time. No needs noted at this time. Call light within reach.
[2018-11-13] MEDS: MORPHINE 2 MG/ML INJ. SYRINGE IVP PRN ×3 (11:24→20:19)
--- NOTE | 2018-11-13 11:30 | NUR ---
Note 2 bottles of Paracentesis fluids taken to lab for processing.
[2018-11-13 12:53] VITALS: BP_SYST 111
[2018-11-13 13:57] LABS: BF APPEARANCE UNSPUN HAZY (CLEAR); BODY FLUID COLOR ORANGE (LT YELLOW); BODY FLUID SOURCE/ TYPE ASCITES; BODY FLUID TOTAL VOLUME 2075 mL; SOURCE/TYPE ,BODY FLUID ASCITES
--- NOTE | 2018-11-13 14:05 | NUR ---
Note Pt resting in bed with family at bedside. Pt denies any needs at this time. Call light within reach.
--- NOTE | 2018-11-13 14:40 | NUR ---
DC Planning Assessment: GROUNDSKEEPING MAINTENANCE WORKER met with Pt. for DCPA. Pt. is alert and oriented.He reported that he resides at home w/ his and she assist with his care. He utilizes a wheelchair and walker, minimal assist for mobility.Pt.is already in the process of obtaining [facility] acute care surgeon will be his step-daughter home assessment will be 11/18/18.Pallative consult requested by MD, Pt. is open to this option or HH he has no preference in agency. He utilized HH in the past but did not recall the name of the provider. No further question or concern, no further social service need at time. DC/CM/SS will remain available as need. Pt. consulted w/ nurse regarding Pallative care consult, nurse will clarify if MD will indeed recommend as it does not seem necessary at this point . Pt. was DC his last stay with HH ,he is open to either option if recommended by doctor. RN will inform of out come. GROUNDSKEEPING MAINTENANCE WORKER contacted Karla from [facility] (Pallative) , they are willing to review case once order is generated.
[2018-11-13 14:41] LABS: EOSINOPHIL, BODY FLUID 0 %; LYMPHOCYTES, BODY FLUID 37 %; MONOCYTES,BODY FLUID 43 %; NEUTROPHIL, BODY FLUID 20 %; RBC, BODY FLUID 6060 /uL; WBC, BODY FLUID 78 /uL
[2018-11-13] MEDS: NORMAL SALINE 5 ML DISP.SYRIN IVF SCH ×2 (14:55→22:37)
[2018-11-13 16:41] LABS: BODY FLUID GLUCOSE 149 mg/dL; BODY FLUID TOTAL PROTEIN < 2.0 g/dL
[2018-11-13 16:43] VITALS: BP_SYST 134
--- NOTE | 2018-11-13 18:00 | NUR ---
NOTE Pt resting in bed - denies any SOB/resp distress or any severe abdominal pain/discomfort at this time. Pt was checked on q1' and PRN all shift for needs and care. IV in right forearm intact and patent at this time. No needs noted at this time. Call light within reach.
[2018-11-13 20:10] VITALS: BP_SYST 125
--- NOTE | 2018-11-13 20:10 | NUR ---
INITIAL NOTES: PATIENT IN BED ,AWAKE ALERT ,ORIENTED X3. JUST FINISH 75% DINNER.HAVING MODERATE ABDOMINAL PAIN.MORPHINE NOT DUE . NO RESPIRATORY DISTRESS. SALINE LOCK PATENT. VITAL SIGNS TAKEN. ALL STABLE. CALL LIGHT WITHIN REACH. BED IN LOW POSITION FOR COMFORTS. ABDOMEN DISTENDED.
--- NOTE | 2018-11-13 20:15 | NUR ---
PAIN: COMPLAIN OF MID LOWER RIGHT ABDOMINAL PAIN. MORPHINE 2MG IV GIVEN .
--- NOTE | 2018-11-13 22:30 | NUR ---
MEDS ADMIN: ALL DUE MEDS GIVEN WITHOUT DIFFICULTY. DENIES DISTRESS.
--- NOTE | 2018-11-14 00:05 | NUR ---
ROUNDS: PATIENT SLEEPING .BREATHING PATTERN REGULAR. NO DISTRESS.
[2018-11-14 00:57] VITALS: BP_SYST 122
--- NOTE | 2018-11-14 02:15 | NUR ---
CONTINUE TO SLEEP. NO DISTRESS. CALL LIGHT WITHIN READ.
--- NOTE | 2018-11-14 04:06 | NUR ---
CONTINUE RESTING WITH EYES CLOSE.
--- NOTE | 2018-11-14 04:51 | NUR ---
Oncology Consultation Paged Reason for consultation: Metastatic [place] Cancer Was consult called: Yes Person who was notified: Radha Consulting Physician: Dr Niki Petty Cell Stripper Specialty: Associate Civil Engineer Ordered By: Dr Kostas Loja
[2018-11-14] MEDS: MORPHINE 2 MG/ML INJ. SYRINGE IVP PRN ×2 (05:27→16:19)
[2018-11-14] MEDS: NORMAL SALINE 5 ML DISP.SYRIN IVF SCH ×2 (05:44→16:21)
--- NOTE | 2018-11-14 06:50 | NUR ---
CLOSING: NO ACUTE DISTRESS .ALL NEEDS WERE DONE. SLEPT AT LONG INTERVALS. MEDICATED WITH MS X2 WITH RELIEF.
[2018-11-14 07:23] LABS: BASOPHILS # (AUTO) 0.1 K/uL (0.0-0.2); BASOPHILS % (AUTO) 0.7 % (0.0-2.0); EOSINOPHILS # (AUTO) 0.1 K/uL (0.0-0.4); EOSINOPHILS % (AUTO) 1.6 % (0.0-4.0); HEMATOCRIT 32.6 % (36-54); HEMOGLOBIN 10.9 g/dL (14.0-18.0); LYMPHOCYTES % (AUTO) 15.2 % (20.5-51.5); MEAN CORPUSCULAR HEMOGLOBIN 30 pg (27-31); MEAN CORPUSCULAR HGB CONC 33 % (32-36); MEAN CORPUSCULAR VOLUME 90 fL (79.0-98.0); MONOCYTES # (AUTO) 0.7 K/uL (0.0-1.0); MONOCYTES % (AUTO) 10.8 % (1.7-9.3); NEUTROPHILS % (AUTO) 71.7 % (40.0-70.0); PLATELET COUNT (AUTO) 221 K/uL (130-430); RED BLOOD CELL COUNT(AUTO) 3.61 MIL/uL (4.2-6.2); RED CELL DISTRIBUTION WIDTH 14.3 % (9.0-15.0); WHITE BLOOD COUNT (AUTO) 6.9 K/uL (4.8-10.8)
[2018-11-14 07:46] LABS: ALBUMIN 1.3 g/dL (3.4-4.8); CALCIUM 7.6 mg/dL (8.4-11.0); CREATININE 1.12 mg/dL (0.55-1.30); POTASSIUM 3.6 mmol/L (3.5-5.1); TOTAL BILIRUBIN 0.4 mg/dL (0.0-1.0)
[2018-11-14 08:00] VITALS: BP_SYST 122
--- NOTE | 2018-11-14 08:00 | NUR ---
Note Pt sitting up in bed with assistance. Pt's Lacy catheter intact and draining. No SOB/resp distress or pain/discomfort noted at this time. IV in right forearm intact and patent infusing IVF's well. Abdomen distended and firm to touch. No needs noted at this time. Call light within reach. Addendum: 11/14/18 at 1451 by Justina Rocha RN Wrong pt. No Lacy catheter in pt.
[2018-11-14] MEDS: PANTOPRAZOLE SODIUM 40 MG TAB PO SCH (08:41)
[2018-11-14] MEDS: CITALOPRAM HYDROBROMIDE 20 MG TABLET PO SCH (08:41)
[2018-11-14] MEDS: MORPHINE SULFATE 30 MG TABLET.SA PO SCH (08:41)
[2018-11-14] MEDS: CYCLOBENZAPRINE HCL 10 MG TABLET (FLEXERIL) PO SCH (08:41)
[2018-11-14] MEDS: SPIRONOLACTONE 50 MG TABLET (ALDACTONE) PO SCH (08:43)
[2018-11-14] MEDS: INSULIN GLARGINE 100 UNITS/ML 10 ML VIAL SQ SCH (08:46)
[2018-11-14] MEDS ORDERED: FUROSEMIDE 20 MG TABLET PO SCH (09:00)
--- NOTE | 2018-11-14 10:16 | NUR ---
Nutrition Update Nick Scale 16 noted. Pt admitted for ascites. Diet: 2 gm Na, CCHO standard carb-60 gm + regular (2 active, separate diet orders) BMI: 24.7 kg/m2 RD to follow per nutrition care standards.
[2018-11-14] MEDS: amLODIPine BESYLATE 5 MG TABLET PO SCH (10:47)
--- NOTE | 2018-11-14 11:00 | NUR ---
Note Pt ambulates to restroom independently and with steady gait at this time. Pain tolerable at this time. Dr Petty came to see pt at 10am, questions/concerns were answered at this time. IV intact in right forearm. Saline locked at this time. Call light within reach.
[2018-11-14 13:13] VITALS: BP_SYST 138
--- NOTE | 2018-11-14 14:55 | NUR ---
Note Pt resting in bed. Denies any needs at this time. Pt is waiting for Dr Nader Loja to do rounds this evening. Call light within reach.
[2018-11-14 16:40] VITALS: BP_SYST 131
--- NOTE | 2018-11-14 16:52 | NUR ---
Dietitian Recommendations * Recommend 2 gm Na, CCHO diet * Encourage increase PO intakes * D/C regular diet * Pt was not interested in Glucerna ONS and nutrition education LP, RD Please refer to Nutrition Assessment for details. Addendum: 11/14/18 at [address] Amended: Links added.
[2018-11-14 17:59] VITALS: BP_SYST 125
--- NOTE | 2018-11-14 18:25 | NUR ---
NOTE Pt was given copy of Dr Gomez's progress report regarding paracentesis followup and medications. Pt was given Zofran IVP at this time for episode of emesis. Pt was checked on q1' and PRN for needs and care. No SOB/resp distress or severe pain/discomfort noted at this time. Pt dressed ins treet clothes and packing all belongings at this time. Pt checked side table and drawers for belongings. No needs noted at this time. Call light within reach.
--- NOTE | 2018-11-14 18:45 | NUR ---
Note Pt given discharge instructions and questions/concerns were answered at this time. No SOB/resp distress or severe abdominal pain/discomfort or N/V noted at this time. Pt was checked on q1' and PRN all shift for needs and care. No needs noted. Pt dressed in street clothes and packed belongings on bedside table. waiting for family to pick him. Call light within reach. Pt stable.
--- NOTE | 2018-11-14 18:55 | NUR ---
Note Pt off the floor to private car with all his belongings and discharge paperwork. Pt stable at this time.
== END 2018-11-14 18:52 | disposition home or self-care (01) | DRG 240 ==
LOC: SED 19:23 → SMU 11-13 01:04
PROVIDERS: ADMIT Preventive Medicine Preventive Medicine/Occupational Environmental Medicine; ATTEND Preventive Medicine Preventive Medicine/Occupational Environmental Medicine
PROC: 0W9G3ZZ Drainage of Peritoneal Cavity, Percutaneous Approach (ICD-10-PCS; principal; 2018-11-13)
DX: C18.9 Malignant neoplasm of colon, unspecified (principal); R18.0 Malignant ascites; E43 Unspecified severe protein-calorie malnutrition; E86.0 Dehydration; C77.9 Secondary and unspecified malignant neoplasm of lymph node, unspecified; C78.7 Secondary malignant neoplasm of liver and intrahepatic bile duct; K74.60 Unspecified cirrhosis of liver; E11.9 Type 2 diabetes mellitus without complications; K43.9 Ventral hernia without obstruction or gangrene; I10 Essential (primary) hypertension; G89.29 Other chronic pain; Z85.118 Personal history of other malignant neoplasm of bronchus and lung; Z90.49 Acquired absence of other specified parts of digestive tract; Z79.899 Other long term (current) drug therapy
CPT/HCPCS: 36415; 49083; 80053; 81000-TC; 82947-TC; 82962; 83690-TC; 84157-TC; 85025; 87081; 89051-TC; 89060-TC; 96361; 96374; 96375; 99285; C1729; J1815; J2270; J2274; J2405

== ENCOUNTER 2018-11-17 11:16 | Emergency (ER) | payer MEDICAID ==
[~2018-11-17] VITALS: Ht 172.7 cm; Wt 75.7 kg
[2018-11-17 11:20] VITALS: BP_SYST 147
[2018-11-17] MEDS ORDERED: ONDANSETRON HCL 4 MG/2 ML VIAL IVP ONE (11:45)
[2018-11-17] MEDS ORDERED: MORPHINE 4 MG/ML INJ. SYRINGE IVP ONE (11:45)
[2018-11-17] MEDS ORDERED: NACL 0.9% 1,000 ML IV ONE (11:45)
[2018-11-17 11:55] LABS: BASOPHILS % (AUTO) 0.4 % (0.0-2.0); EOSINOPHILS % (AUTO) 0.2 % (0.0-4.0); HEMATOCRIT 35.7 % (36-54); HEMOGLOBIN 12.1 g/dL (14.0-18.0); LYMPHOCYTES # (AUTO) 0.6 K/uL (1.0-5.5); LYMPHOCYTES % (AUTO) 6.2 % (20.5-51.5); MEAN CORPUSCULAR HEMOGLOBIN 30 pg (27-31); MEAN CORPUSCULAR HGB CONC 34 % (32-36); MEAN CORPUSCULAR VOLUME 89 fL (79.0-98.0); MONOCYTES # (AUTO) 0.7 K/uL (0.0-1.0); MONOCYTES % (AUTO) 7.3 % (1.7-9.3); NEUTROPHILS # (AUTO) 7.9 K/uL (1.8-7.7); NEUTROPHILS % (AUTO) 85.9 % (40.0-70.0); PLATELET COUNT (AUTO) 257 K/uL (130-430); RED CELL DISTRIBUTION WIDTH 14.2 % (9.0-15.0); WHITE BLOOD COUNT (AUTO) 9.2 K/uL (4.8-10.8)
[2018-11-17 12:07] LABS: CALCIUM 8.2 mg/dL (8.4-11.0); CREATININE 1.45 mg/dL (0.55-1.30); POTASSIUM 4.1 mmol/L (3.5-5.1)
[2018-11-17 12:13] LABS: ALBUMIN 1.8 g/dL (3.4-4.8); TOTAL BILIRUBIN 0.8 mg/dL (0.0-1.0)
[2018-11-17 12:55] VITALS: BP_SYST 127
== END 2018-11-17 12:55 | disposition home or self-care (01) ==
LOC: SED 11:16
DX: K74.60 Unspecified cirrhosis of liver (principal); R11.10 Vomiting, unspecified; E11.9 Type 2 diabetes mellitus without complications; I10 Essential (primary) hypertension; Z85.038 Personal history of other malignant neoplasm of large intestine; Z79.899 Other long term (current) drug therapy
CPT/HCPCS: 36415; 80053; 82962; 83690; 85025; 96361; 96374; 96375; 99283; J2270; J2405; J7030

== ENCOUNTER 2018-11-24 09:49 | Emergency (ER) | payer MEDICAID ==
[~2018-11-24] VITALS: Ht 172.7 cm; Wt 73.0 kg
[2018-11-24 09:59] VITALS: BP_SYST 123
--- NOTE | 2018-11-24 10:08 | NUR ---
Patient to ER bed 1 to gown for evaluation. Side rails up. Report given to Jessica LUNA.
--- NOTE | 2018-11-24 10:14 | NUR ---
ER Dr. Friedman at bedside examining patient.
--- NOTE | 2018-11-24 10:15 | NUR ---
Patient presented to ER with abdominal pain, vomiting, & back pain. Patient A&Ox4, skin jaundice & warm, cap refill <3, ambulatory with cane to ER, abdominal distention present, hernia to right side of abdomen, pain 10/10, nausea, denies V/D at this time. Patient states currently Patient of [facility], on Chemo therapy Tx for colon Cancer with liver metastasis.
[2018-11-24] MEDS ORDERED: NACL 0.9% 1,000 ML IV ONE (10:30)
[2018-11-24] MEDS ORDERED: MORPHINE 4 MG/ML INJ. SYRINGE IVP ONE ×2 (10:30→12:15)
[2018-11-24] MEDS ORDERED: ONDANSETRON HCL 4 MG/2 ML VIAL IVP ONE (10:30)
[2018-11-24 10:47] LABS: BASOPHILS % (AUTO) 0.6 % (0.0-2.0); EOSINOPHILS % (AUTO) 0.6 % (0.0-4.0); HEMATOCRIT 36.9 % (36-54); HEMOGLOBIN 12.2 g/dL (14.0-18.0); LYMPHOCYTES # (AUTO) 0.7 K/uL (1.0-5.5); LYMPHOCYTES % (AUTO) 9.1 % (20.5-51.5); MEAN CORPUSCULAR HEMOGLOBIN 30 pg (27-31); MEAN CORPUSCULAR HGB CONC 33 % (32-36); MEAN CORPUSCULAR VOLUME 91 fL (79.0-98.0); MONOCYTES # (AUTO) 0.7 K/uL (0.0-1.0); NEUTROPHILS % (AUTO) 80.7 % (40.0-70.0); PLATELET COUNT (AUTO) 259 K/uL (130-430); RED BLOOD CELL COUNT(AUTO) 4.07 MIL/uL (4.2-6.2); RED CELL DISTRIBUTION WIDTH 14.5 % (9.0-15.0); WHITE BLOOD COUNT (AUTO) 7.5 K/uL (4.8-10.8)
[2018-11-24 10:53] LABS: CALCIUM 8.5 mg/dL (8.4-11.0); CHLORIDE 102 mmol/L (98-107); CREATININE 1.45 mg/dL (0.55-1.30); GLUCOSE 155 mg/dL (70-99); POTASSIUM 3.9 mmol/L (3.5-5.1); SODIUM SERUM 138 mmol/L (136-145); UREA NITROGEN, BLOOD 32 mg/dL (8-21)
[2018-11-24 10:54] LABS: PROTHROMBIN TIME 10.1 SECS (9.5-12.5)
[2018-11-24 10:56] LABS: ANION GAP < 3 (5-15); GFR AFRICAN AMERICAN 65 mL/min (>90)
[2018-11-24 10:58] LABS: ALANINE AMINOTRANSFERASE 32 U/L (12-78); ALBUMIN 2.1 g/dL (3.4-4.8); AMYLASE 52 U/L (0-100); ASPARTATE AMINOTRANSFERASE 54 U/L (10-37); LACTATE DEHYDROGENASE 282 U/L (85-227); LIPASE 61 U/L (73-393); TOTAL BILIRUBIN 0.6 mg/dL (0.0-1.0)
[2018-11-24] MEDS ORDERED: ALBUMIN HUMAN 5% 250 ML IV ONE (12:30)
--- NOTE | 2018-11-24 12:45 | NUR ---
Albumin IV started per order. Patient sitting up in [facility], updated/educated about treatment.
--- NOTE | 2018-11-24 12:45 | NUR ---
Marixa gould in ED - 11/24/18 at 1512 by [email or web address] Albumin IV started per order. Patient sitting up in [facility], updated/educated about treatment.
[2018-11-24 15:05] VITALS: BP_SYST 137
--- NOTE | 2018-11-24 15:05 | NUR ---
Patient given written and verbal discharge instructions and verbalizes understanding. ER MD discussed with patient the results and treatment provided. Patient in stable condition. ID arm band removed. IV catheter removed intact and dressing applied, no active bleeding. No Rx given. Patient educated on pain management and to follow up with PMD. Pain Scale 1/10 tolerable for patient. Opportunity for questions provided and answered. Medication side effect fact sheet provided.
--- NOTE | 2018-11-24 15:05 | NUR ---
Marixa gould in ED - 11/24/18 at 1514 by [email or web address] Albumin IV started per order. Patient sitting up in [facility], updated/educated about treatment.
== END 2018-11-24 15:05 | disposition home or self-care (01) ==
LOC: SED 09:49
DX: C78.5 Secondary malignant neoplasm of large intestine and rectum (principal); C22.8 Malignant neoplasm of liver, primary, unspecified as to type; E86.0 Dehydration; I10 Essential (primary) hypertension; E11.9 Type 2 diabetes mellitus without complications; Z86.73 Personal history of transient ischemic attack (TIA), and cerebral infarction without residual deficits; Z79.4 Long term (current) use of insulin; Z79.899 Other long term (current) drug therapy
CPT/HCPCS: 36415; 71045; 80053; 81002; 82150; 83605; 83615; 83690; 85025; 85610; 85730; 96361; 96365; 96375; 96376; 99284; J2270; J2405; J7030; P9041

== ENCOUNTER 2018-12-04 08:37 | Emergency (ER) | payer MEDICAID ==
[~2018-12-04] VITALS: Ht 172.7 cm; Wt 72.6 kg
[2018-12-04 08:37] VITALS: BP_SYST 111
--- NOTE | 2018-12-04 08:39 | NUR ---
BROUGHT BACK TO BED #4 AND TRIAGED. REPORT GIVEN TO KANDACE
--- NOTE | 2018-12-04 08:45 | NUR ---
pt arrives from home w/ intermittent abd pain. Pt reports being dx w/ stage 4 colon CA. Pt also reports having an abd hernia. AAOx4 and ambulatory.
--- NOTE | 2018-12-04 08:50 | NUR ---
ER at bedside examining patient.
--- NOTE | 2018-12-04 09:05 | NUR ---
# 22 gauge angiocath placed to right hand Use of asceptic technique. Opsite placed over site. Blood return noted. Blood for lab drawn from site. Flushed with 10 cc of normal saline. No evidence of infiltration noted. Patient tolerated well.
--- NOTE | 2018-12-04 09:45 | NUR ---
Dr. Norton at the bedside doing a paracentesis.
[2018-12-04] MEDS ORDERED: MORPHINE SULFATE 10 MG/ML VIAL IM ONE (10:00)
--- NOTE | 2018-12-04 10:00 | NUR ---
medicated the pt w/ Morhpine IM per MD order. Will reassess.
--- NOTE | 2018-12-04 10:20 | NUR ---
Patient given written and verbal discharge instructions and verbalizes understanding. ER MD discussed with patient the results and treatment provided. Patient in stable condition. ID arm band removed. Patient educated on pain management and to follow up with PMD. Pain Scale 3/10 Opportunity for questions provided and answered. Medication side effect fact sheet provided.
[2018-12-04 10:26] VITALS: BP_SYST 111
== END 2018-12-04 10:20 | disposition home or self-care (01) ==
LOC: SED 08:37
DX: R18.8 Other ascites (principal); E11.9 Type 2 diabetes mellitus without complications; I10 Essential (primary) hypertension; Z79.899 Other long term (current) drug therapy
CPT/HCPCS: 49083; 82962; 96372; 99285; J2270

== ENCOUNTER 2018-12-14 06:33 | Inpatient (IN) | payer MEDICAID ==
[~2018-12-14] VITALS: Ht 172.7 cm; Wt 73.0 kg
[2018-12-14 06:43] VITALS: BP_SYST 135
[2018-12-14 07:31] LABS: BASOPHILS % (AUTO) 0.3 % (0.0-2.0); EOSINOPHILS % (AUTO) 0.1 % (0.0-4.0); HEMATOCRIT 37.5 % (36-54); HEMOGLOBIN 12.6 g/dL (14.0-18.0); LYMPHOCYTES # (AUTO) 0.4 K/uL (1.0-5.5); LYMPHOCYTES % (AUTO) 4.6 % (20.5-51.5); MEAN CORPUSCULAR HEMOGLOBIN 30 pg (27-31); MEAN CORPUSCULAR HGB CONC 34 % (32-36); MEAN CORPUSCULAR VOLUME 90 fL (79.0-98.0); MONOCYTES # (AUTO) 0.6 K/uL (0.0-1.0); MONOCYTES % (AUTO) 6.6 % (1.7-9.3); NEUTROPHILS # (AUTO) 8.4 K/uL (1.8-7.7); NEUTROPHILS % (AUTO) 88.4 % (40.0-70.0); PLATELET COUNT (AUTO) 198 K/uL (130-430); RED BLOOD CELL COUNT(AUTO) 4.16 MIL/uL (4.2-6.2); WHITE BLOOD COUNT (AUTO) 9.5 K/uL (4.8-10.8)
[2018-12-14 07:48] LABS: CALCIUM 8.4 mg/dL (8.4-11.0); CHLORIDE 92 mmol/L (98-107); CREATININE 2.18 mg/dL (0.55-1.30); GLUCOSE 137 mg/dL (70-99); SODIUM SERUM 131 mmol/L (136-145); UREA NITROGEN, BLOOD 45 mg/dL (8-21)
[2018-12-14 07:51] LABS: GFR AFRICAN AMERICAN 40 mL/min (>90)
[2018-12-14 07:53] LABS: INR 1.1 (0.80-1.20); PROTHROMBIN TIME 10.8 SECS (9.5-12.5)
[2018-12-14 07:54] LABS: ALANINE AMINOTRANSFERASE 33 U/L (12-78); ALBUMIN 2.1 g/dL (3.4-4.8); ASPARTATE AMINOTRANSFERASE 72 U/L (10-37); LIPASE 54 U/L (73-393); TOTAL BILIRUBIN 2.4 mg/dL (0.0-1.0)
[2018-12-14 09:29] LABS: ANION GAP < 3 (5-15)
[2018-12-14] MEDS ORDERED: NACL 0.9% 2,500 ML IV ONE (10:00)
[2018-12-14] MEDS ORDERED: LACTULOSE 20 GM/30 ML UDC PO ONE ×2 (10:00→16:15)
[2018-12-14] MEDS ORDERED: LACTULOSE 20 GM/30 ML UDC ONE ×2 (10:27→10:36)
[2018-12-14] MEDS ORDERED: MORPHINE 2 MG/ML INJ. SYRINGE IVP ONE (10:30)
[2018-12-14] MEDS ORDERED: LACTULOSE 20 GM/30 ML UDC RC ONE ×2 (10:45→12:45)
[2018-12-14] MEDS ORDERED: POTASSIUM CHLORIDE 40 MEQ in NS 250 ML IV ONE (10:45)
[2018-12-14 11:45] VITALS: BP_SYST 138
[2018-12-14] MEDS ORDERED: PIPERACILLIN/TAZOBACTAM 2.25 GM in NS 50 ML IV SCH (12:00)
[2018-12-14] MEDS: NACL 0.9% 1,000 ML IV SCH (12:24)
[2018-12-14] MEDS: PIPERACILLIN/TAZOBACTAM 2.25 GM in NS 50 ML IV SCH ×2 (13:39→19:24)
[2018-12-14] MEDS: ONDANSETRON HCL 4 MG/2 ML VIAL IVP PRN ×2 (14:43→21:17)
[2018-12-14] MEDS: MORPHINE 4 MG/ML INJ. SYRINGE IVP PRN (14:44)
[2018-12-14 16:00] VITALS: BP_SYST 144
[2018-12-14] MEDS ORDERED: DEXTROSE 50% JECT 50 ML DISP.SYRIN IVP PRN (16:15)
[2018-12-14] MEDS ORDERED: HYDROcodone/ACETAMIN 10-325 MG TAB PO PRN (16:45)
[2018-12-14 20:00] VITALS: BP_SYST 12; BP_SYST 122
[2018-12-14] MEDS: LACTULOSE 20 GM/30 ML UDC PO SCH (21:00)
[2018-12-14] MEDS: MORPHINE SULFATE 30 MG TABLET.SA PO SCH (21:23)
[2018-12-14] MEDS: AMITRIPTYLINE HCL 25 MG TABLET (ELAVIL) PO SCH (21:23)
[2018-12-14] MEDS: amLODIPine BESYLATE 5 MG TABLET PO SCH (23:02)
[2018-12-15 00:39] VITALS: BP_SYST 129
[2018-12-15] MEDS: PIPERACILLIN/TAZOBACTAM 2.25 GM in NS 50 ML IV SCH ×2 (00:54→05:10)
[2018-12-15] MEDS: NACL 0.9% 1,000 ML IV SCH ×2 (00:54→15:28)
[2018-12-15] MEDS: ONDANSETRON HCL 4 MG/2 ML VIAL IVP PRN (05:10)
[2018-12-15] MEDS: MORPHINE 4 MG/ML INJ. SYRINGE IVP PRN (05:19)
[2018-12-15 06:21] LABS: BILIRUBIN,URINE 1+ (NEGATIVE); BLOOD, URINE NEGATIVE (NEGATIVE); CLARITY/URINE TURBID (CLEAR); COLOR,URINE YELLOW (YELLOW); GLUCOSE,URINE NEGATIVE (NEGATIVE); KETONES,URINE NEGATIVE (NEGATIVE); LEUKOCYTE ESTERASE ,URINE NEGATIVE (NEGATIVE); NITRITE, URINE NEGATIVE (NEGATIVE); PH,URINE 5.5 (5.0-8.0); PROTEIN URINE 2+ (NEGATIVE)
[2018-12-15 06:21] LABS: PROTHROMBIN TIME 10.3 SECS (9.5-12.5)
[2018-12-15 06:24] LABS: CREATININE 2.3 mg/dL (0.55-1.30); PHOSPHORUS 4.1 mg/dL (2.7-4.5); POTASSIUM 3.4 mmol/L (3.5-5.1)
[2018-12-15 06:27] LABS: BACTERIA,URINE FEW /HPF (None Seen); RBC,URINE 0-3 /HPF (0-3); WBC,URINE 0-3 /HPF (0-3)
[2018-12-15 06:28] LABS: URINE AMORPHOUS URATE 3+ /HPF (None Seen)
[2018-12-15 06:33] LABS: BASOPHILS % (AUTO) 0.3 % (0.0-2.0); EOSINOPHILS % (AUTO) 0.1 % (0.0-4.0); HEMATOCRIT 39.6 % (36-54); HEMOGLOBIN 13.2 g/dL (14.0-18.0); LYMPHOCYTES # (AUTO) 1.3 K/uL (1.0-5.5); LYMPHOCYTES % (AUTO) 12.7 % (20.5-51.5); MEAN CORPUSCULAR HEMOGLOBIN 30 pg (27-31); MEAN CORPUSCULAR HGB CONC 33 % (32-36); MEAN CORPUSCULAR VOLUME 91 fL (79.0-98.0); MONOCYTES # (AUTO) 0.6 K/uL (0.0-1.0); MONOCYTES % (AUTO) 6.3 % (1.7-9.3); NEUTROPHILS # (AUTO) 8.1 K/uL (1.8-7.7); NEUTROPHILS % (AUTO) 80.6 % (40.0-70.0); PLATELET COUNT (AUTO) 238 K/uL (130-430); RED BLOOD CELL COUNT(AUTO) 4.34 MIL/uL (4.2-6.2); RED CELL DISTRIBUTION WIDTH 15.1 % (9.0-15.0)
[2018-12-15 08:00] VITALS: BP_SYST 141
[2018-12-15] MEDS: SPIRONOLACTONE 50 MG TABLET (ALDACTONE) PO SCH (08:57)
[2018-12-15] MEDS: PANTOPRAZOLE SODIUM 40 MG TAB PO SCH (08:57)
[2018-12-15] MEDS: LACTULOSE 20 GM/30 ML UDC PO SCH ×2 (08:58→21:06)
[2018-12-15] MEDS: MORPHINE SULFATE 30 MG TABLET.SA PO SCH ×2 (08:58→21:07)
[2018-12-15] MEDS: CITALOPRAM HYDROBROMIDE 20 MG TABLET PO SCH (09:00)
[2018-12-15 11:26] LABS: BODY FLUID SOURCE/ TYPE ASCITES; SOURCE/TYPE ,BODY FLUID ASCITES
[2018-12-15 11:27] LABS: BF APPEARANCE UNSPUN CLOUDY (CLEAR)
[2018-12-15 11:28] LABS: BODY FLUID COLOR RED (LT YELLOW); BODY FLUID TOTAL VOLUME 5800 mL
[2018-12-15 12:23] VITALS: BP_SYST 128
[2018-12-15 12:26] LABS: WBC, BODY FLUID 156 /uL
[2018-12-15 12:27] LABS: LYMPHOCYTES, BODY FLUID 40 %; MONOCYTES,BODY FLUID 50 %; NEUTROPHIL, BODY FLUID 10 %; RBC, BODY FLUID 22933 /uL
[2018-12-15 12:30] LABS: URINE SODIUM, RANDOM 7 mmol/L (40-220)
[2018-12-15] MEDS: amLODIPine BESYLATE 5 MG TABLET PO SCH ×2 (12:41→21:08)
[2018-12-15] MEDS ORDERED: cefTRIAXone 1 GM in D5W 50 ML IV SCH (13:00)
[2018-12-15 16:47] VITALS: BP_SYST 100
[2018-12-15 18:05] LABS: BODY FLUID GLUCOSE 135 mg/dL
[2018-12-15 18:06] LABS: BODY FLUID TOTAL PROTEIN 1.7 g/dL
[2018-12-15 20:00] VITALS: BP_SYST 121
[2018-12-15] MEDS: AMITRIPTYLINE HCL 25 MG TABLET (ELAVIL) PO SCH (21:06)
[2018-12-16] VITALS (8 sets, daily range): BP systolic 113–143
[2018-12-16] MEDS: ONDANSETRON HCL 4 MG/2 ML VIAL IVP PRN (03:50)
[2018-12-16 07:54] LABS: BASOPHILS % (AUTO) 0.3 % (0.0-2.0); EOSINOPHILS % (AUTO) 0.1 % (0.0-4.0); HEMATOCRIT 35.3 % (36-54); HEMOGLOBIN 11.8 g/dL (14.0-18.0); LYMPHOCYTES # (AUTO) 0.5 K/uL (1.0-5.5); LYMPHOCYTES % (AUTO) 6.4 % (20.5-51.5); MEAN CORPUSCULAR HEMOGLOBIN 30 pg (27-31); MEAN CORPUSCULAR HGB CONC 33 % (32-36); MEAN CORPUSCULAR VOLUME 91 fL (79.0-98.0); MONOCYTES # (AUTO) 0.6 K/uL (0.0-1.0); MONOCYTES % (AUTO) 7.4 % (1.7-9.3); NEUTROPHILS # (AUTO) 7.1 K/uL (1.8-7.7); NEUTROPHILS % (AUTO) 85.8 % (40.0-70.0); PLATELET COUNT (AUTO) 151 K/uL (130-430); RED CELL DISTRIBUTION WIDTH 15.1 % (9.0-15.0); WHITE BLOOD COUNT (AUTO) 8.3 K/uL (4.8-10.8)
[2018-12-16 08:25] LABS: ALANINE AMINOTRANSFERASE 27 U/L (12-78); ALBUMIN 1.7 g/dL (3.4-4.8); ASPARTATE AMINOTRANSFERASE 59 U/L (10-37); CALCIUM 7.8 mg/dL (8.4-11.0); CHLORIDE 96 mmol/L (98-107); CREATININE 1.69 mg/dL (0.55-1.30); GLUCOSE 110 mg/dL (70-99); POTASSIUM 3.1 mmol/L (3.5-5.1); SODIUM SERUM 133 mmol/L (136-145); UREA NITROGEN, BLOOD 32 mg/dL (8-21)
[2018-12-16 08:29] LABS: ANION GAP < 3 (5-15); GFR AFRICAN AMERICAN 54 mL/min (>90)
[2018-12-16] MEDS: LACTULOSE 20 GM/30 ML UDC PO SCH ×2 (09:00→20:25)
[2018-12-16] MEDS: MORPHINE SULFATE 30 MG TABLET.SA PO SCH ×2 (09:26→20:25)
[2018-12-16] MEDS: CITALOPRAM HYDROBROMIDE 20 MG TABLET PO SCH (09:26)
[2018-12-16] MEDS: PANTOPRAZOLE SODIUM 40 MG TAB PO SCH (09:27)
[2018-12-16] MEDS: amLODIPine BESYLATE 5 MG TABLET PO SCH ×2 (09:27→21:52)
[2018-12-16] MEDS: SPIRONOLACTONE 50 MG TABLET (ALDACTONE) PO SCH (09:28)
[2018-12-16] MEDS: NACL 0.9% 1,000 ML IV SCH (14:26)
[2018-12-16] MEDS ORDERED: POTASSIUM CHLORIDE 20 MEQ TAB.PRT.SR PO ONE (15:30)
[2018-12-16] MEDS: AMITRIPTYLINE HCL 25 MG TABLET (ELAVIL) PO SCH (20:25)
[2018-12-16] MEDS: INSULIN REGULAR, HUMAN 100 UNITS/ML, 10 ML VIAL (humuLIN R) SUBCUT PRN (20:28)
[2018-12-17 01:50] VITALS: BP_SYST 121
[2018-12-17] MEDS: INSULIN REGULAR, HUMAN 100 UNITS/ML, 10 ML VIAL (humuLIN R) SUBCUT PRN (06:01)
[2018-12-17 07:35] VITALS: BP_SYST 134
[2018-12-17 07:49] LABS: BASOPHILS % (AUTO) 0.4 % (0.0-2.0); EOSINOPHILS % (AUTO) 0.2 % (0.0-4.0); HEMATOCRIT 36.3 % (36-54); HEMOGLOBIN 12.1 g/dL (14.0-18.0); LYMPHOCYTES # (AUTO) 0.6 K/uL (1.0-5.5); LYMPHOCYTES % (AUTO) 6.9 % (20.5-51.5); MEAN CORPUSCULAR HEMOGLOBIN 30 pg (27-31); MEAN CORPUSCULAR HGB CONC 33 % (32-36); MEAN CORPUSCULAR VOLUME 91 fL (79.0-98.0); MONOCYTES # (AUTO) 0.5 K/uL (0.0-1.0); MONOCYTES % (AUTO) 6.1 % (1.7-9.3); NEUTROPHILS # (AUTO) 7.1 K/uL (1.8-7.7); NEUTROPHILS % (AUTO) 86.4 % (40.0-70.0); PLATELET COUNT (AUTO) 148 K/uL (130-430); RED BLOOD CELL COUNT(AUTO) 4.01 MIL/uL (4.2-6.2); RED CELL DISTRIBUTION WIDTH 15.2 % (9.0-15.0); WHITE BLOOD COUNT (AUTO) 8.2 K/uL (4.8-10.8)
[2018-12-17 08:25] LABS: ALBUMIN 1.6 g/dL (3.4-4.8); CALCIUM 7.8 mg/dL (8.4-11.0); CREATININE 1.7 mg/dL (0.55-1.30); POTASSIUM 4.2 mmol/L (3.5-5.1); TOTAL BILIRUBIN 2.1 mg/dL (0.0-1.0)
[2018-12-17] MEDS: CITALOPRAM HYDROBROMIDE 20 MG TABLET PO SCH (08:27)
[2018-12-17] MEDS: MORPHINE SULFATE 30 MG TABLET.SA PO SCH (08:27)
[2018-12-17] MEDS: SPIRONOLACTONE 50 MG TABLET (ALDACTONE) PO SCH (08:28)
[2018-12-17] MEDS: PANTOPRAZOLE SODIUM 40 MG TAB PO SCH (08:28)
[2018-12-17] MEDS: LACTULOSE 20 GM/30 ML UDC PO SCH (08:29)
[2018-12-17] MEDS: amLODIPine BESYLATE 5 MG TABLET PO SCH (09:34)
[2018-12-17] MEDS ORDERED: LEVOFLOXACIN 250 MG TABLET PO SCH (10:00)
[2018-12-17 11:14] VITALS: BP_SYST 125
[2018-12-17 11:19] VITALS: BP_SYST 125
== END 2018-12-17 11:50 | disposition home or self-care (01) | DRG 720 ==
LOC: SED 06:33 → STU 10:44
PROVIDERS: ADMIT Internal Medicine; ATTEND Internal Medicine
PROC: 0W9G3ZZ Drainage of Peritoneal Cavity, Percutaneous Approach (ICD-10-PCS; principal; 2018-12-15)
DX: A41.9 Sepsis, unspecified organism (principal); N17.0 Acute kidney failure with tubular necrosis; R18.0 Malignant ascites; K76.6 Portal hypertension; E43 Unspecified severe protein-calorie malnutrition; E87.2 Acidosis; K65.2 Spontaneous bacterial peritonitis; C78.00 Secondary malignant neoplasm of unspecified lung; C78.7 Secondary malignant neoplasm of liver and intrahepatic bile duct; K43.9 Ventral hernia without obstruction or gangrene; E87.6 Hypokalemia; E86.0 Dehydration; F32.9 Major depressive disorder, single episode, unspecified; E87.1 Hypo-osmolality and hyponatremia; K72.90 Hepatic failure, unspecified without coma; B19.20 Unspecified viral hepatitis C without hepatic coma; E11.9 Type 2 diabetes mellitus without complications; I10 Essential (primary) hypertension; K59.00 Constipation, unspecified; K74.60 Unspecified cirrhosis of liver; Z79.891 Long term (current) use of opiate analgesic; Z85.048 Personal history of other malignant neoplasm of rectum, rectosigmoid junction, and anus; Z86.73 Personal history of transient ischemic attack (TIA), and cerebral infarction without residual deficits; Z79.899 Other long term (current) drug therapy; Z79.4 Long term (current) use of insulin; Z68.24 Body mass index [BMI] 24.0-24.9, adult
CPT/HCPCS: 36415; 49083; 71045; 71250-TC; 80048; 80053; 81000-TC; 82140-TC; 82150-TC; 82570-TC; 82947-TC; 82962; 83605; 83690-TC; 83735-TC; 83880; 84100-TC; 84157-TC; 84302-TC; 85025; 85610-TC; 85730-TC; 87040-TC; 87070-TC; 87081; 89051-TC; 89060-TC; 93005; 96361; 96374; 99285; C1729; G0378; J0696; J1815; J2270; J2274; J2405; J2543; J3480; J7030; J7040; J7050; J7060